=== PATIENT | female | born 1965 ===

== ENCOUNTER 2016-12-06 20:42 | Emergency (ER) | payer SELFPAY ==
[2016-12-06 21:22] VITALS: BP 161/86; PULSE 105; RESP 16; TEMP 97.7; O2SAT 100
--- NOTE | 2016-12-06 22:01 | ED PDOC ---
HPI: General Adult Time Seen by Provider: 12/06/16 21:48 Chief Complaint (Nursing): Bite Chief Complaint (Provider): Dog Bite on Right Palm History Per: Patient History/Exam Limitations: no limitations Additional Complaint(s): La Nena Bedolla is a 51 year old female that presents to the ED after being bit by her neighbor's dog, who is UTD on vaccinations, on her right palm. She reports that her last tetanus vaccination was 3 years ago. Past Medical History Reviewed: Historical Data, Nursing Documentation, Vital Signs Vital Signs: Last Vital Signs Temp 97.7 F 12/06/16 21:16 Pulse 105 H 12/06/16 21:16 Resp 16 12/06/16 21:16 BP 161/86 H 12/06/16 21:16 Pulse Ox 100 12/06/16 22:04 - Medical History PMH: Anxiety - Family History Family History: States: Unknown Family Hx - Immunization History Hx Tetanus Toxoid Vaccination: Yes (3 years ago) - Home Medications Home Medications: Ambulatory Orders Medication Instructions Recorded Acetaminophen with Codeine 2 tab PO Q4H PRN #22 tab 12/15/15 [Tylenol with Codeine No. 3 300 mg-30 mg] Lidocaine 5% [Lidoderm] 1 ea TD DAILY PRN #30 patch 12/15/15 Naproxen [Naprosyn] 1 tab PO BID PRN #60 tab 12/15/15 Amoxicillin/Clavulanate [Augmentin 1 tab PO BID #14 tab 02/24/16 875 MG-125 MG] Amoxicillin/Clavulanate [Augmentin 1 tab PO BID #20 tab 12/06/16 875 MG-125 MG] - Allergies Allergies/Adverse Reactions: Allergies Allergy/AdvReac Type Severity Reaction Status Date / Time No Known Allergies Allergy Verified 02/24/16 15:39 Review of Systems Skin: Positive for: Other (abrasion on right palm) Physical Exam - Reviewed Nursing Documentation Reviewed: Yes Vital Signs Reviewed: Yes - Physical Exam Appears: Positive for: Non-toxic, No Acute Distress Head Exam: Positive for: ATRAUMATIC, NORMOCEPHALIC Skin: Positive for: Normal Color, Warm Eye Exam: Positive for: Normal appearance, EOMI, PERRL Extremity: Positive for: Other (Patient has 2 cm linear laceration that goes into 2 cm linear abrasion on the medial apsect of her right palm. ) Neurologic/Psych: Positive for: Alert, Oriented - ECG O2 Sat by Pulse Oximetry: 100 (RA) Pulse Ox Interpretation: Normal Medical Decision Making Medical Decision Making: Impression: Laceration on Right Palm due to Dog Bite Plan: * Explained to patient that due to dog bite, it is best not to have suture repair in case of infection. Will instead clean area and apply antibiotic ointment. Scribe Attestation: Documented by Merari Godoy, acting as a scribe for Sherry Dennis PA-C. Provider Scribe Attestation: All medical record entries made by the Scribe were at my direction and personally dictated by me. I have reviewed the chart and agree that the record accurately reflects my personal performance of the history, physical exam, medical decision making, and the department course for this patient. I have also personally directed, reviewed, and agree with the discharge instructions and disposition. Disposition - Clinical Impression Clinical Impression: Animal bite wound - Disposition Referrals: [facility] [Outside] Disposition: Routine/Home Disposition Time: 22:18 Condition: STABLE Prescriptions: Amoxicillin/Clavulanate [Augmentin 875 MG-125 MG] 1 tab PO BID #20 tab Instructions: Animal Bite (ED)
[2016-12-06] MEDS ORDERED: Acetaminophen-Codeine 300/30 mg Tab PO STA (22:17)
== END 2016-12-06 22:47 | disposition home or self-care (01) ==
LOC: H.ER 20:42
DX: S61.411A Laceration without foreign body of right hand, initial encounter (principal); W54.0XXA Bitten by dog, initial encounter; Y92.89 Other specified places as the place of occurrence of the external cause; F41.9 Anxiety disorder, unspecified